=== PATIENT | female | born 1970 | race American Indian/Alaskan Native ===

== ENCOUNTER 2017-09-17 12:06 | Emergency (ER) | payer SELFPAY ==
--- NOTE | 2017-09-17 13:09 | Emergency Department Report ---
Eye Injury/Foreign Body - HPI Duration: 3 month Eye Location: Left Severity: Mild (3/10) Tetanus Status: Up to Date Eye Symptoms: Eye Pain: Yes (left eyelid pain with swelling), Blurred Vision: No , Eye Redness: Yes (left upper eyelid), Grinding/Hammering Metal: No, Used Eye Protection: No, Contact Lens Use: No, Recalls Injury: No, Photophobia: No Other History: Patient reports that she's had a stye to her left upper eyelid 3 months. She says she did not have any insurance and she was waiting in. She said the area is getting more enlarged and she wants to get it checked. Denies any fever or chills. Denies any drainage. Denies any visual difficulties. She reports pain 3-10 with blinking and touching the area. Tetanus vaccine is up-to-date ED Review of Systems ROS: Stated complaint: STY TO LEFT EYE Other details as noted in HPI Comment: All other systems reviewed and negative Constitutional: no symptoms reported Eyes: other (left upper eyelid pain). denies: eye pain, eye discharge, vision change ENT: denies: ear pain, throat pain, dental pain, hearing loss, congestion Respiratory: no symptoms reported Cardiovascular: denies: chest pain, palpitations, dyspnea on exertion, edema, syncope, paroxysmal nocturnal dyspnea Gastrointestinal: denies: abdominal pain, nausea, vomiting, diarrhea, constipation Musculoskeletal: denies: arthralgia Skin: denies: rash Neurological: denies: headache ED Past Medical Hx - Past Medical History Previous Medical History?: Yes Hx Hypertension: Yes (no meds) - Surgical History Past Surgical History?: No - Family History Family history: no significant - Social History Smoking Status: Current Every Day Smoker Substance Use Type: Alcohol, Marijuana, Non Opiate Pain - Medications Home Medications: Home Medications Medication Instructions Recorded Confirmed Last Taken Type ALBUTEROL Inhaler [ProAir HFA 2 puff IH QID PRN #1 inh 02/24/15 Unknown Rx Inhaler] Benzonatate [Tessalon Perles] 100 mg PO Q8HR #14 capsule 02/24/15 Unknown Rx Doxycycline Hyclate [Doxycycline 100 mg PO Q12HR #14 tab 02/24/15 Unknown Rx Hyclate TAB] Guaifenesin/Pseudoephedrne HCl 1 each PO BID PRN #24 tab.er.12h 02/24/15 Unknown Rx [Mucinex D ER 600-60 mg Tablet] Acetaminophen/Codeine [Tylenol 1 tab PO Q6H PRN #10 tab 01/12/16 Unknown Rx /Codeine # 3 tab] Gentamicin 0.3% Ophth Oint 1 applicatio OP Q8H 7 Days #1 tube 09/17/17 Unknown Rx Eye Injury Exam - Exam General: Vital signs noted. No distress. Alert and acting appropriately. This is a 46-year-old female alert and well-developed in no acute distress. - Visual Acuity Right Vision Acuity Degree: 20/30 Eye Exam: Both EOMI, Neither Injection, Neither Chemosis, Neither Eye Foreign Body, Neither Lid Foreign Body, Neither Mucous Discharge, Neither Purulent Discharge, Neither Corneal Edema, Neither Photophobia Left Vision Acuity Degree: 20/30 Eye Exam: Both EOMI, Neither Injection, Neither Chemosis, Neither Abnormal Pupil , Neither Eye Foreign Body, Neither Lid Foreign Body (patient does have indurated area to left upper lid. Mild tender to palpate no drainage noted.), Neither Mucous Discharge, Neither Purulent Discharge, Neither Corneal Edema, Neither Photophobia Bilateral Vision Acuity Degree: 20/30 Eye Exam: Both EOMI, Neither Injection, Neither Chemosis, Neither Abnormal Pupil , Neither Eye Foreign Body, Neither Lid Foreign Body, Neither Mucous Discharge, Neither Purulent Discharge, Neither Corneal Edema, Neither Photophobia ED Course Vital Signs 09/17/17 12:09 Temperature 98.4 F Pulse Rate 100 H Respiratory 20 Rate Blood Pressure 138/113 O2 Sat by Pulse 98 Oximetry - Reevaluation(s) Reevaluation #2: 09/17/17 13:17 Patient stable throughout ED course. ED Medical Decision Making - Medical Decision Making ED course: Reports left upper eyelid stye 3 months and so she was waiting to get insurance peripheral push can't wait anymore because getting worse. Denies any visual difficulties. Eye exam is normal. Visual acuity is 20/30. I discussed this patient diagnosis and treatment plan and she voiced understanding. Patient does not have a primary care so I will refer her to some outside Medical Center to follow-up in 2-3 days for primary care. Patient has elevated blood pressure of 138/113 and said that she had a history of high blood pressure but her blood pressure has been fine. I discussed with her she needs to take her blood pressure daily and keep a log and take to primary care visit with her for evaluation and possible restart on blood pressure medication if needed. Patient blood pressure manually was 140/88. Critical care attestation.: If time is entered above; I have spent that time in minutes in the direct care of this critically ill patient, excluding procedure time. ED Disposition Clinical Impression: Pain of left eyelid Stgerry external Qualifiers: Laterality: left Eyelid: upper Qualified Code(s): H00.014 - Hordeolum externum left upper eyelid Disposition: DC-01 TO HOME OR SELFCARE Is pt being admited?: No Does the pt Need Aspirin: No Condition: Stable Instructions: Christine (ED) Additional Instructions: Please apply warm compresses to the left upper eyelid 3 times a day and after each warm compresses apply antibiotic ointment. You will do this for 7 days. Please see brochure that I gave to you [facility]. They have of her ideas service to include primary care, dentist and BEE K[employer]PER service Please give a log of the blood pressure and record and take to primary care visit with you. Prescriptions: Gentamicin 0.3% Ophth Oint 1 applicatio OP Q8H 7 Days #1 tube Referrals: [facility] [Outside] - 09/19/17 Forms: Work/School Release Form(ED)
[2017-09-17 13:34] VITALS: BP 130/88
== END 2017-09-17 13:51 | disposition home or self-care (01) ==
LOC: ED 12:06
DX: H00.014 Hordeolum externum left upper eyelid (principal); I10 Essential (primary) hypertension; F17.200 Nicotine dependence, unspecified, uncomplicated; F12.10 Cannabis abuse, uncomplicated
CPT/HCPCS: 99282

== ENCOUNTER 2018-03-25 11:52 | Emergency (ER) | payer SELFPAY ==
[2018-03-25 12:20] VITALS: BP 142/98
--- NOTE | 2018-03-25 13:10 | Emergency Department Report ---
ED General Adult HPI - General Chief complaint: Medical Clearance Stated complaint: MENOPAUSAL COMPLICATIONS Time Seen by Provider: 03/25/18 13:03 Source: patient Mode of arrival: Ambulatory Limitations: No Limitations - History of Present Illness Initial comments: Ms. Loomis is a healthy 47-year-old female who presents with menstrual cramps. She states that she needs a doctor's note since she desired to leave work early today. She desires to return to work tomorrow. However with heavier menstrual cycles, she needs rest. She has muscle cramps. She has mild headache. Over the last several months she's had heavier bleeding and hot flashes. She assumes that she is going beginning menopause -: Gradual Quality: other (mild menstrual cramps) - Related Data Previous Rx's Medication Instructions Recorded Last Taken Type ALBUTEROL Inhaler (OR & NICU) 2 puff IH QID PRN #1 inh 02/24/15 Unknown Rx [ProAir HFA Inhaler] Benzonatate [Tessalon Perles] 100 mg PO Q8HR #14 capsule 02/24/15 Unknown Rx Doxycycline Hyclate [Doxycycline 100 mg PO Q12HR #14 tab 02/24/15 Unknown Rx Hyclate TAB] Guaifenesin/Pseudoephedrne HCl 1 each PO BID PRN #24 tab.er.12h 02/24/15 Unknown Rx [Mucinex D ER 600-60 mg Tablet] Acetaminophen/Codeine [Tylenol 1 tab PO Q6H PRN #10 tab 01/12/16 Unknown Rx /Codeine # 3 tab] Gentamicin 0.3% Ophth Oint 1 applicatio OP Q8H 7 Days #1 tube 09/17/17 Unknown Rx Allergies Allergy/AdvReac Type Severity Reaction Status Date / Time No Known Allergies Allergy Unverified 02/24/15 12:10 ED Review of Systems ROS: Stated complaint: MENOPAUSAL COMPLICATIONS Other details as noted in HPI Constitutional: denies: fever, malaise Respiratory: denies: cough Cardiovascular: denies: chest pain Gastrointestinal: denies: nausea, vomiting Neurological: headache ED Past Medical Hx - Past Medical History Hx Hypertension: Yes (no meds) - Surgical History Past Surgical History?: Yes - Social History Smoking Status: Current Every Day Smoker Substance Use Type: None - Medications Home Medications: Home Medications Medication Instructions Recorded Confirmed Last Taken Type ALBUTEROL Inhaler (OR & NICU) 2 puff IH QID PRN #1 inh 02/24/15 Unknown Rx [ProAir HFA Inhaler] Benzonatate [Tessalon Perles] 100 mg PO Q8HR #14 capsule 02/24/15 Unknown Rx Doxycycline Hyclate [Doxycycline 100 mg PO Q12HR #14 tab 02/24/15 Unknown Rx Hyclate TAB] Guaifenesin/Pseudoephedrne HCl 1 each PO BID PRN #24 tab.er.12h 02/24/15 Unknown Rx [Mucinex D ER 600-60 mg Tablet] Acetaminophen/Codeine [Tylenol 1 tab PO Q6H PRN #10 tab 01/12/16 Unknown Rx /Codeine # 3 tab] Gentamicin 0.3% Ophth Oint 1 applicatio OP Q8H 7 Days #1 tube 09/17/17 Unknown Rx ED Physical Exam - General Limitations: No Limitations General appearance: alert, in no apparent distress - Head Head exam: Present: atraumatic, normocephalic - ENT ENT exam: Present: normal orophraynx - Respiratory Respiratory exam: Present: normal lung sounds bilaterally. Absent: respiratory distress - Cardiovascular Cardiovascular Exam: Present: regular rate, normal rhythm, normal heart sounds - GI/Abdominal GI/Abdominal exam: Present: soft. Absent: distended, tenderness, guarding ED Course Vital Signs 03/25/18 12:16 Temperature 98.8 F Pulse Rate 73 Respiratory 18 Rate Blood Pressure 142/98 O2 Sat by Pulse 100 Oximetry ED Medical Decision Making - Medical Decision Making Encounter for work note and dysmenorrhea. No acute medical emergency exists currently dc'd home Critical care attestation.: If time is entered above; I have spent that time in minutes in the direct care of this critically ill patient, excluding procedure time. ED Disposition Clinical Impression: Dysmenorrhea Disposition: DC-01 TO HOME OR SELFCARE Is pt being admited?: No Does the pt Need Aspirin: No Condition: Stable Instructions: Dysmenorrhea (ED) Referrals: [facility] [Outside] - 3-5 Days Forms: Work/School Release Form(ED)
== END 2018-03-25 13:16 | disposition home or self-care (01) ==
LOC: ED 11:52
DX: N94.6 Dysmenorrhea, unspecified (principal); I10 Essential (primary) hypertension; F17.200 Nicotine dependence, unspecified, uncomplicated
CPT/HCPCS: 99282